=== PATIENT | male | born 1955 | race Caucasian/White ===

== ENCOUNTER → 2016-12-24 14:31 | Outpatient (CLI) | payer BC, MEDICARE | END | disposition home or self-care (01) | LOC: D.MRI 14:30 | DX: M54.5 Low back pain (principal) ==

== ENCOUNTER → 2017-02-07 16:37 | Outpatient (CLI) | payer BC, MEDICARE | END | disposition home or self-care (01) | LOC: D.CT 16:37 | DX: R10.9 Unspecified abdominal pain (principal) ==

== ENCOUNTER → 2017-10-15 11:10 | Outpatient (CLI) | payer BC, MEDICARE | END | disposition home or self-care (01) | LOC: D.CT 11:10 | DX: R91.8 Other nonspecific abnormal finding of lung field (principal) ==

== ENCOUNTER → 2018-06-10 15:31 | Outpatient (CLI) | payer BC, MEDICARE | END | disposition home or self-care (01) | LOC: D.MRI 15:31 | DX: M54.5 Low back pain (principal) ==

== ENCOUNTER → 2019-01-20 09:51 | Outpatient (CLI) | payer BC, MEDICARE | END | disposition home or self-care (01) | LOC: D.HCCARDIO 09:51 | PROVIDERS: ATTEND Internal Medicine Interventional Cardiology | DX: I10 Essential (primary) hypertension (principal) ==

== ENCOUNTER → 2020-01-27 09:45 | Outpatient (CLI) | payer OTHER ==
--- NOTE | ~2020-01-27 | EC ---
PATIENT:ANTWON CORTEZ DATE OF SERVICE: 01/27/20 SEX: M MEDICAL RECORD: [id number] DATE OF : [birth year] LOCATION:D[facility] AGE OF PATIENT: 64 ADMISSION DATE: 01/27/20 REFERRING PHYSICIAN: INTERPRETING PHYSICIAN: TIM CARVALHO MD ECHOCARDIOGRAM REPORT ECHO CHARGES 4 ECHO COMPLETE Date: 01/27/20 CLINICAL DIAGNOSIS: CAD/ASSESS EF AND VALVES HX COPD/HTN ECHOCARDIOGRAPHIC MEASUREMENTS (adult normal given) AC root (d.<3.7cm) 3.8 cm LV Septum d (<1.2 cm> 1.0 cm Valve Excursion 1.8 cm LV Septum (systole) 1.2 cm Left Atria (s.<4.0cm> 3.0 cm LVPW d(<1.2cm) 1.2 cm RV (d.<2.3cm) 3.4 cm LVPW (sytole) 1.5 cm LV diastole(<5.6CM) 5.7 cm MV E-F(>70mm/sec) cm LV systole 4.6 cm LVOT Diameter 1.9 cm MV exc.(>10mm) 1.3 cm Est.ejection fraction (50-75%) % DOPPLER: LVIT cm/sec A 76.0 cm/sec E 83.0 cm/sec LA cm/sec RVSP 16 mmHg LVOT 87 cm/sec AOP1/2T m/s Asc. Ao 109 cm/sec RVOT 57 cm/sec RA cm/sec PA 128 cm/sec AV Gradient Peak 4.75 mmHg AV Mean 2.69 mmHg AV Area 2.5 cm MV Gradient Peak 3.79 mmHg MV Mean 1.62 mmHg MV Area cm COMMENTS: Dish Up Person: 2 PRAKASH MIJARES Furnace Tapper: 3 Dr. Gaspar TAPE# PACS Pericardial Effusion N DATE OF SERVICE: Adequate 2D, color flow imaging, spectral Doppler, and M-mode. No LVH. LV internal dimensions are normal. Wall motion is normal. EF 25%. Aortic valve is tricuspid. No evidence of stenosis by Doppler interrogation. Left atrium is normal at 3.0 cm. Mitral valve shows no prolapse. Trace MR. Right-sided chambers are grossly normal. Trace TR. NTS:[id number] Voice Confirmation ID: [id number] DOCUMENT ID: [id number] ECHOCARDIOGRAM REPORT [id number] ANTWON CORTEZ GREGORY A MD CC: [id number] DICTATION DATE: 01/31/2044 SALESPERSON FLORIST SUPPLIES: 01/31/202041 DEP CLI 01/27/20 [id number] [place] [address]
== END | disposition home or self-care (01) ==
LOC: D.HCCECHO 09:45
PROVIDERS: ATTEND Internal Medicine Interventional Cardiology
DX: I25.10 Atherosclerotic heart disease of native coronary artery without angina pectoris (principal)

== ENCOUNTER 2020-08-19 08:57 | Emergency (ER) | payer OTHER ==
[~2020-08-19] VITALS: Ht 172.7 cm; Wt 106.8 kg
[2020-08-19 09:10] VITALS: BP 173/80; Ht 172.7 cm; Wt 106.8 kg
[2020-08-19 09:50] LABS: BASOPHILS 0.8 % (0-2); EOSINOPHILS 2.2 % (0-7); HEMATOCRIT 47.8 % (42.0-54.0); HEMOGLOBIN 16.9 g/dL (13.5-17.5); IMMATURE GRANULOCYTES 0.3 % (0-5); LYMPHOCYTE ABS# 1.34 10x3/uL (1.32-3.57); LYMPHOCYTES 15.5 % (15-50); MCH 31.2 pg (26.0-34.0); MCHC 35.4 g/dL (31.0-37.0); MCV 88.2 fL (80.0-100.0); MONOCYTES 4.4 % (2-11); NEUTROPHIL ABS# 6.63 10x3/uL (1.78-5.38); NEUTROPHILS 76.8 % (40-80); PLATELET COUNT 169 10x3/uL (130-400); RBC 5.42 10x6/uL (4.20-6.10); RDW 12.6 % (11.5-14.5); WBC 8.6 10x3/uL (4.8-10.8)
[2020-08-19 09:56] LABS: ANION GAP 11.8 mmol/L (8-16); CALCIUM 9.4 mg/dL (8.5-10.1); CARBON DIOXIDE 27.2 mmol/L (21.0-32.0); CREATININE - SERUM 1.1 mg/dL (0.6-1.3)
[2020-08-19 10:03] LABS: ALBUMIN 4.2 g/dL (3.4-5.0); BILIRUBIN - TOTAL 0.72 mg/dL (0.2-1.3); PROTEIN - SERUM 7.5 g/dL (6.4-8.2)
[2020-08-19] MEDS ORDERED: IBUPROFEN800 MG PO (10:21)
[2020-08-19] MEDS ORDERED: CYCLOBENZAPRINE10 MG PO (10:21)
[2020-08-19 11:10] LABS: BILIRUBIN NEGATIVE (NEGATIVE); KETONE NEGATIVE (NEGATIVE); NITRITE NEGATIVE (NEGATIVE); UROBILINOGEN NORMAL mg/dL (< 2)
[2020-08-19 11:11] LABS: WHITE CELLS - URINE OCC HPF (0-1)
== END 2020-08-19 11:30 | disposition home or self-care (01) ==
LOC: D.ER 08:57
PROVIDERS: Family Medicine
DX: R10.9 Unspecified abdominal pain (principal); D35.01 Benign neoplasm of right adrenal gland; R31.9 Hematuria, unspecified; I10 Essential (primary) hypertension